=== PATIENT | female | born 1935 | race Caucasian/White ===

== ENCOUNTER 2016-07-21 17:23 | Emergency (ER) | payer MEDICARE, OTHER | END 2016-07-21 19:19 | disposition left against medical advice (07) | LOC: ER1 17:23 | DX: Z53.21 Procedure and treatment not carried out due to patient leaving prior to being seen by health care provider (principal) ==

== ENCOUNTER 2016-08-10 13:47 | Emergency (ER) | payer MEDICARE, OTHER ==
[2016-08-10 18:03] LABS: HEMOGLOBIN 11.5 gm/dl (12.3-15.3); RED BLOOD COUNT 3.48 M/UL (4.00-5.10); WHITE BLOOD COUNT 4.9 K/UL (4.5-11.0)
[2016-08-10 18:31] LABS: BUN/CREATININE RATIO 18 (0-10)
== END 2016-08-10 23:30 | disposition home or self-care (01) ==
LOC: ER1 13:47
PROVIDERS: Family Medicine
DX: I11.0 Hypertensive heart disease with heart failure (principal); I50.9 Heart failure, unspecified; J44.9 Chronic obstructive pulmonary disease, unspecified; F17.200 Nicotine dependence, unspecified, uncomplicated
CPT/HCPCS: 36415; 71010; 80053; 82550; 82553; 83874; 83880; 84484; 85025; 85379; 93005; 93970; 99283; J7050; Q9963